=== PATIENT | female | born 1955 | race Caucasian/White ===

== ENCOUNTER 2018-11-06 19:43 | Emergency (ER) | payer MEDICARE ==
[2018-11-06] MEDS ORDERED: SULFAMETHOX-TMP DS 800/160 TAB ONE (19:59)
[2018-11-06] MEDS ORDERED: LIDOCAINE 2%-EPI 1:200,000 20 ML VIAL IJ ONE (19:59)
[2018-11-06] MEDS ORDERED: HYDROCODONE/ACETAMINOPHEN 5/325 MG TAB ONE (19:59)
== END 2018-11-06 21:02 | disposition home or self-care (01) ==
LOC: EDH 19:43
DX: L72.3 Sebaceous cyst (principal); I10 Essential (primary) hypertension
CPT/HCPCS: 10060; 99283; J3490